=== PATIENT | female | born 2000 | race Caucasian/White ===

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

== ENCOUNTER 2019-09-11 10:22 | Emergency (ER) | payer MEDICAID ==
[~2019-09-11] VITALS: Ht 167.6 cm; Wt 113.8 kg
[~2019-09-11 10:22] MED LIST changes: +INSU100V34 SQ
--- NOTE | 2019-09-11 10:37 | NUR ---
Pt to room from triage.
[2019-09-11] MEDS ORDERED: ACETAMINOPHEN 500 MG TABLET ONE (10:49)
[2019-09-11] MEDS ORDERED: ACETAMINOPHEN 500 MG TABLET PO ONE (11:00)
[2019-09-11 11:29] LABS: MICROSCOPIC NOT IND
[2019-09-11 11:30] LABS: CULTURE INDICATED? NO
--- NOTE | 2019-09-11 11:54 | NUR ---
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
--- NOTE | 2019-09-11 12:34 | NUR ---
Patient given discharge instructions and they have confirmed that they understand the instructions. Patient ambulatory with steady gait. Pt left with d/c paperwork, Rx, work note, and all personal belongings. NADN. No other needs expressed.
[2019-09-11 12:35] VITALS: BP 150/92
== END 2019-09-11 12:37 | disposition home or self-care (01) ==
LOC: ED 12:31
DX: O26.892 Other specified pregnancy related conditions, second trimester (principal); M54.42 Lumbago with sciatica, left side; R10.9 Unspecified abdominal pain; E10.9 Type 1 diabetes mellitus without complications; Z87.891 Personal history of nicotine dependence; Z3A.21 21 weeks gestation of pregnancy
CPT/HCPCS: 81003; 99283

== ENCOUNTER 2019-10-28 03:11 | Outpatient (CLI) | payer MEDICAID ==
[~2019-10-28] VITALS: Ht 167.6 cm; Wt 115.9 kg
[2019-10-28 03:17] VITALS: BP 141/95
[2019-10-28 03:45] LABS: MICROSCOPIC INDICATED
[2019-10-28 03:52] LABS: CREATININE,URINE RANDOM 36.6 mg/dL
[2019-10-28 04:07] LABS: BASOPHILS # (AUTO) 0.04 x10^3/uL (0-0.3); BASOPHILS % (AUTO) 0 % (0-1); EOSINOPHILS # (AUTO) 0.15 x10^3/uL (0-0.8); EOSINOPHILS % (AUTO) 1 % (1-7); LYMPHOCYTES # (AUTO) 2.46 x10^3/uL (1-6.1); LYMPHOCYTES % (AUTO) 18 % (22-44); MD NO; MEAN CORPUSCULAR HEMOGLOBIN 29.3 pg (27.0-34.8); MEAN CORPUSCULAR HGB CONC 33.6 g/dL (32.4-35.8); MEAN CORPUSCULAR VOLUME 87.2 fL (80-100); MEAN PLATELET VOLUME 8.8 fL (7.4-10.4); MONOCYTES % (AUTO) 9 % (2-9); NEUTROPHILS # (AUTO) 9.69 x10^3/uL (1.8-8.0); NEUTROPHILS % (AUTO) 72 % (42-75); PLATELET COUNT 252 x10^3/uL (130-400); RED BLOOD COUNT 4.02 x10^6/uL (3.82-5.3); RED CELL DISTRIBUTION WIDTH 14.7 % (9.6-15.2)
[2019-10-28 04:17] LABS: ALANINE AMINOTRANSFERASE 22 U/L (12-78); ALBUMIN 2.5 g/dL (3.4-5.0); ANION GAP 6 mmol/L (5-15); CALCIUM 9.2 mg/dL (8.5-10.1); CHLORIDE 108 mmol/L (98-107); CREATININE 0.57 mg/dL (0.55-1.02)
[2019-10-28 04:19] LABS: ALKALINE PHOSPHATASE 73 U/L (45-117); BILIRUBIN,TOTAL 0.1 mg/dL (0.2-1.0)
[2019-10-28 04:20] LABS: BILIRUBIN, DIRECT < 0.1 mg/dL (0.1-0.2)
== END 2019-10-28 06:38 | disposition home or self-care (01) ==
LOC: LDOP 03:11 → LDIP 05:00 → LDOP 06:38
PROVIDERS: ATTEND Obstetrics & Gynecology
DX: O16.3 Unspecified maternal hypertension, third trimester (principal); O24.913 Unspecified diabetes mellitus in pregnancy, third trimester; Z3A.28 28 weeks gestation of pregnancy
CPT/HCPCS: 36415; 59025; 80053; 81001; 82248; 82570; 83036; 84156; 84550; 85025; 87086; 99211; G0378; G0463

== ENCOUNTER 2019-12-04 14:46 | Inpatient (IN) | payer MEDICAID ==
[~2019-12-04] VITALS: Ht 167.6 cm; Wt 118.0 kg
[2019-12-04] MEDS ORDERED: [UNRECOGNIZED DRUG - OTHER] SC (15:04)
[2019-12-04 15:05] VITALS: BP 133/83
[2019-12-04 18:13] LABS: BASOPHILS # (AUTO) 0.02 x10^3/uL (0-0.3); BASOPHILS % (AUTO) 0 % (0-1); EOSINOPHILS # (AUTO) 0.13 x10^3/uL (0-0.8); EOSINOPHILS % (AUTO) 1 % (1-7); LYMPHOCYTES # (AUTO) 1.99 x10^3/uL (1-6.1); LYMPHOCYTES % (AUTO) 17 % (22-44); MD NO; MEAN CORPUSCULAR HEMOGLOBIN 28.9 pg (27.0-34.8); MEAN CORPUSCULAR VOLUME 87.4 fL (80-100); MEAN PLATELET VOLUME 9.4 fL (7.4-10.4); MONOCYTES # (AUTO) 0.83 x10^3/uL (0-1.4); MONOCYTES % (AUTO) 7 % (2-9); NEUTROPHILS % (AUTO) 74 % (42-75); PLATELET COUNT 245 x10^3/uL (130-400); RED BLOOD COUNT 4.25 x10^6/uL (3.82-5.3); RED CELL DISTRIBUTION WIDTH 15.6 % (9.6-15.2)
[2019-12-04] MEDS ORDERED: DIPHENHYDRAMINE 25 MG CAPSULE PO PRN (19:30)
[2019-12-04 19:48] VITALS: BP 131/83
[2019-12-04] MEDS ORDERED: ADMELOG MC SCH (20:30)
[2019-12-04] MEDS ORDERED: BASALGAR MC SCH (20:30)
[2019-12-04] MEDS ORDERED: ACETAMINOPHEN 325 MG TABLET ONE (20:54)
[2019-12-04] MEDS ORDERED: INSULIN GLARGINE 100 UNITS/ML, PEN SQ-INSULIN SCH (21:00)
[2019-12-04] MEDS ORDERED: ACETAMINOPHEN 325 MG TABLET PO PRN (21:00)
[2019-12-05] MEDS ORDERED: INSULIN LISPRO 100 UNIT/ML, 3ML VIAL SQ SCH ×2 (08:00)
[2019-12-05] MEDS ORDERED: INSULIN LISPRO 100 UNITS/ML, PEN SQ-INSULIN SCH (09:31)
== END 2019-12-05 12:42 | disposition home or self-care (01) | DRG 832 ==
LOC: LDOP 14:46 → LDIP 17:24
PROVIDERS: ADMIT Obstetrics & Gynecology; ATTEND Obstetrics & Gynecology
DX: O24.013 Pre-existing type 1 diabetes mellitus, in pregnancy, third trimester (principal); O10.913 Unspecified pre-existing hypertension complicating pregnancy, third trimester; O36.8130 Decreased fetal movements, third trimester, not applicable or unspecified; Z3A.33 33 weeks gestation of pregnancy
CPT/HCPCS: 36415; 76819; 82962; 85025; 86850; 86900; G0378; J1815; J1817

== ENCOUNTER 2019-12-18 19:26 | Inpatient (IN) | payer MEDICAID ==
[~2019-12-18] VITALS: Ht 167.6 cm; Wt 118.0 kg
[~2019-12-18 19:26] MED LIST changes: +[UNRECOGNIZED DRUG - OTHER] SC
[2019-12-18 19:53] VITALS: BP 143/79
[2019-12-18 20:16] LABS: MICROSCOPIC INDICATED
[2019-12-18 20:20] LABS: BASOPHILS # (AUTO) 0.03 x10^3/uL (0-0.3); BASOPHILS % (AUTO) 0 % (0-1); EOSINOPHILS # (AUTO) 0.09 x10^3/uL (0-0.8); EOSINOPHILS % (AUTO) 1 % (1-7); LYMPHOCYTES # (AUTO) 1.98 x10^3/uL (1-6.1); LYMPHOCYTES % (AUTO) 18 % (22-44); MD NO; MEAN CORPUSCULAR HEMOGLOBIN 28.6 pg (27.0-34.8); MEAN CORPUSCULAR VOLUME 86.7 fL (80-100); MEAN PLATELET VOLUME 9.8 fL (7.4-10.4); MONOCYTES # (AUTO) 0.73 x10^3/uL (0-1.4); MONOCYTES % (AUTO) 7 % (2-9); NEUTROPHILS # (AUTO) 8.24 x10^3/uL (1.8-8.0); NEUTROPHILS % (AUTO) 74 % (42-75); PLATELET COUNT 242 x10^3/uL (130-400); RED BLOOD COUNT 4.16 x10^6/uL (3.82-5.3); RED CELL DISTRIBUTION WIDTH 15.8 % (9.6-15.2)
[2019-12-18 20:30] LABS: ALANINE AMINOTRANSFERASE 16 U/L (12-78); ALBUMIN 2.3 g/dL (3.4-5.0); ANION GAP 10 mmol/L (5-15); CALCIUM 8.9 mg/dL (8.5-10.1); CHLORIDE 109 mmol/L (98-107)
[2019-12-18 20:32] LABS: ALKALINE PHOSPHATASE 111 U/L (45-117); BILIRUBIN, DIRECT < 0.1 mg/dL (0.1-0.2); BILIRUBIN,TOTAL 0.2 mg/dL (0.2-1.0); TOTAL PROTEIN 6.7 g/dL (6.4-8.2)
[2019-12-18] MEDS ORDERED: MAGNESIUM SULF. PMX 20GM/500ML 500 ML IV ONE (21:43)
[2019-12-18] MEDS ORDERED: NEWBORN KIT ONE (21:43)
[2019-12-18] MEDS ORDERED: MISOPROSTOL 25 MCG TABLET ONE (21:43)
[2019-12-18] MEDS ORDERED: MISOPROSTOL 200 MCG TABLET ONE (21:43)
[2019-12-18] MEDS ORDERED: LIDOCAINE 1%, 20ML ONE (21:43)
[2019-12-18] MEDS ORDERED: MAGNESIUM SULFATE PMX 4GM/100M 100 ML ONE (21:43)
[2019-12-19] MEDS ORDERED: MAGNESIUM SULFATE PMX 4GM/100M 100 ML IVPB ONE
[2019-12-19] MEDS: LACTATED RINGERS 1,000 ML IV PRN ×2 (00:05→13:32)
[2019-12-19] MEDS: MAGNESIUM SULF. PMX 20GM/500ML 500 ML IV SCH ×4 (00:37→20:36)
[2019-12-19] MEDS: MISOPROSTOL 25 MCG TABLET VG PRN ×2 (00:49→04:45)
[2019-12-19] MEDS ORDERED: D5%-LACTATED RINGERS 1,000 ML IV SCH ×2 (01:48→07:27)
[2019-12-19] MEDS ORDERED: OXYTOCIN 30U/ 0.9% NaCL 500ML 500 ML IV PRN (01:48)
[2019-12-19] MEDS ORDERED: OXYTOCIN 30U/ 0.9% NaCL 500ML 500 ML IV ONE (01:48)
[2019-12-19] MEDS ORDERED: LACTATED RINGERS 1,000 ML IV SCH ×2 (01:48→16:44)
[2019-12-19] MEDS ORDERED: FENTANYL PF 100 MCG/2ML IV PRN (02:00)
[2019-12-19] MEDS ORDERED: TERBUTALINE 1 MG/ML, 1ML IVPush PRN (02:00)
[2019-12-19] MEDS ORDERED: METOCLOPRAMIDE 5 MG/ML, 2ML IVPush PRN (02:00)
[2019-12-19] MEDS ORDERED: ONDANSETRON 2MG/ML, 2ML IVPush PRN (02:00)
[2019-12-19] MEDS ORDERED: FENTANYL PF 100 MCG/2ML IVPush PRN (02:00)
[2019-12-19] MEDS ORDERED: TERBUTALINE 1 MG/ML, 1ML SQ PRN (02:00)
[2019-12-19] MEDS ORDERED: SODIUM CITRATE/CITRIC ACID 30 ML UDC PO PRN (02:00)
[2019-12-19] MEDS ORDERED: MISOPROSTOL 25 MCG TABLET ONE (04:40)
[2019-12-19 05:00] VITALS: BP 139/70
[2019-12-19] MEDS ORDERED: MAGNESIUM SULF. PMX 20GM/500ML 500 ML IV ONE ×2 (07:40→20:31)
[2019-12-19] MEDS ORDERED: OXYTOCIN 30U/ 0.9% NaCL 500ML 500 ML ONE (08:28)
[2019-12-19] MEDS ORDERED: ACETAMINOPHEN 325 MG TABLET ONE (10:49)
[2019-12-19] MEDS: INSULIN LISPRO 100 UNITS/ML, PEN SQ-INSULIN SCH ×4 (11:00→21:00)
[2019-12-19] MEDS ORDERED: ACETAMINOPHEN 325 MG TABLET PO PRN (11:00)
[2019-12-19] MEDS ORDERED: FENTANYL/BUPIV./NS/PF 250 ML EPIDCONT SCH ×2 (11:06→14:56)
[2019-12-19] MEDS ORDERED: FENTANYL PF 500 MCG, BUPIVACAINE/PF 0.5%, 30ML 62.5 ML in SODIUM CHLORIDE 0.9% 177.5 ML EPIDCONT SCH ×2 (11:30→16:00)
[2019-12-19] MEDS ORDERED: CLINDAMYCIN PMX 900MG/50ML 50 ML ONE ×2 (13:33→20:30)
[2019-12-19] MEDS: CLINDAMYCIN PMX 900MG/50ML 50 ML IV SCH ×2 (13:35→20:34)
[2019-12-19] MEDS ORDERED: BUPIVACAINE 0.25% ONE (13:47)
[2019-12-19] MEDS ORDERED: EPHEDRINE 50 MG/ML, 1ML ONE (14:47)
[2019-12-19] MEDS ORDERED: NALOXONE 0.4 MG/ML, 1ML IVPush PRN (15:00)
[2019-12-19] MEDS ORDERED: EPHEDRINE 50 MG/ML, 1ML IVPush PRN (15:00)
[2019-12-19] MEDS ORDERED: DIPHENHYDRAMINE 50 MG/ML, 1ML IVPush PRN (15:00)
[2019-12-19] MEDS ORDERED: LACTATED RINGERS 1,000 ML IVBOLUS PRN (15:00)
[2019-12-19] MEDS: REGULAR INSULIN 100 UNITS in SODIUM CHLORIDE 0.9% 99 ML IV PRN (17:23)
[2019-12-19] MEDS: LACTATED RINGERS 1,000 ML IV SCH ×2 (17:31→22:56)
[2019-12-19 19:00] VITALS: BP 101/57
[2019-12-19] MEDS ORDERED: ONDANSETRON 2MG/ML, 2ML ONE (20:05)
[2019-12-19] MEDS: ONDANSETRON 2MG/ML, 2ML IVPush PRN (20:08)
[2019-12-19] MEDS ORDERED: INSULIN GLARGINE 100 UNITS/ML, PEN SQ-INSULIN SCH (21:00)
[2019-12-20] MEDS ORDERED: FENTANYL PF 100 MCG/2ML ONE (00:27)
[2019-12-20] MEDS ORDERED: BUPIVACAINE 0.25% ONE (00:27)
[2019-12-20 00:30] VITALS: BP 138/72
[2019-12-20] MEDS: LACTATED RINGERS 1,000 ML IV SCH (03:47)
[2019-12-20] MEDS ORDERED: CLINDAMYCIN PMX 900MG/50ML 50 ML ONE ×2 (04:08→11:55)
[2019-12-20] MEDS: CLINDAMYCIN PMX 900MG/50ML 50 ML IV SCH ×2 (04:30→12:11)
[2019-12-20 04:31] VITALS: BP 111/54
[2019-12-20] MEDS: INSULIN LISPRO 100 UNITS/ML, PEN SQ-INSULIN SCH (04:43)
[2019-12-20] MEDS ORDERED: MAGNESIUM SULF. PMX 20GM/500ML 500 ML IV ONE ×3 (05:26→23:07)
[2019-12-20] MEDS: MAGNESIUM SULF. PMX 20GM/500ML 500 ML IV SCH ×3 (05:28→23:10)
[2019-12-20] MEDS ORDERED: FENTANYL/BUPIV./NS/PF 250 ML EPIDCONT ONE ×2 (07:19→21:17)
[2019-12-20] MEDS: D5%-0.45% NACL 1,000 ML IV SCH (09:31)
[2019-12-20] MEDS ORDERED: ONDANSETRON 2MG/ML, 2ML ONE ×2 (11:03→23:56)
[2019-12-20] MEDS: ONDANSETRON 2MG/ML, 2ML IVPush PRN (11:05)
[2019-12-20] MEDS ORDERED: SODIUM CITRATE/CITRIC ACID 30 ML UDC ONE (12:14)
[2019-12-20] MEDS ORDERED: METOCLOPRAMIDE 5 MG/ML, 2ML ONE (12:14)
[2019-12-20] MEDS ORDERED: OXYTOCIN 30U/ 0.9% NaCL 500ML 500 ML ONE (13:43)
[2019-12-20] MEDS: REGULAR INSULIN 100 UNITS in SODIUM CHLORIDE 0.9% 99 ML IV PRN (14:24)
[2019-12-20] MEDS ORDERED: LIDOCAINE/MPF 2%-EPI 1:200K, 20 ML ONE (20:26)
[2019-12-20] MEDS ORDERED: AZITHROMYCIN 500 MG in SODIUM CHLORIDE 0.9% 250 ML IV ONE (22:30)
[2019-12-20] MEDS ORDERED: METOCLOPRAMIDE 5 MG/ML, 2ML IV ONE (23:00)
[2019-12-20] MEDS ORDERED: LACTATED RINGERS 1,000 ML IVBOLUS ONE (23:00)
[2019-12-20] MEDS ORDERED: SODIUM CITRATE/CITRIC ACID 30 ML UDC PO ONE (23:00)
[2019-12-20] MEDS ORDERED: morphine SULFATE/PF 0.5 MG/ML, 10ML ONE (23:55)
[2019-12-20] MEDS ORDERED: OXYTOCIN 10 UNITS/ML, 1ML ONE (23:56)
[2019-12-20] MEDS ORDERED: CEFAZOLIN 1,000 MG ONE (23:56)
[2019-12-20] MEDS ORDERED: WATER-INJECTION,STERILE 10 ML IV ONE (23:56)
[2019-12-20] MEDS ORDERED: DEXAMETHASONE 4 MG/ML, 1ML ONE (23:56)
[2019-12-20] MEDS ORDERED: KETOROLAC 30 MG/1 ML ONE (23:56)
[2019-12-21] MEDS ORDERED: OXYTOCIN 10 UNITS/ML, 1ML ONE (00:24)
[2019-12-21] MEDS ORDERED: MIDAZOLAM 1 MG/ML, 2ML ONE (00:39)
[2019-12-21] MEDS ORDERED: OXYcodone 5 MG/5 ML ORAL.SOL UDC PO PRN (02:00)
[2019-12-21] MEDS ORDERED: ONDANSETRON 2MG/ML, 2ML IVPush PRN ×2 (02:00)
[2019-12-21] MEDS ORDERED: NALOXONE 0.4 MG/ML, 1ML IVPush PRN (02:00)
[2019-12-21] MEDS ORDERED: MEPERIDINE/PF 25MG/0.5ML IVPush PRN (02:00)
[2019-12-21] MEDS ORDERED: FENTANYL PF 100 MCG/2ML IV PRN (02:00)
[2019-12-21] MEDS ORDERED: LABETALOL 5MG/ML, 20ML IV PRN (02:00)
[2019-12-21] MEDS ORDERED: KETOROLAC 30 MG/1 ML IVPush PRN (02:00)
[2019-12-21] MEDS ORDERED: PROMETHAZINE 25 MG/ML, 1ML IVPush PRN (02:00)
[2019-12-21] MEDS ORDERED: EPHEDRINE 50 MG/ML, 1ML IVPush PRN (02:00)
[2019-12-21] MEDS ORDERED: DIPHENHYDRAMINE 50 MG/ML, 1ML IVPush PRN (02:00)
[2019-12-21] MEDS ORDERED: OXYcodone/APAP 5/325MG TABLET PO PRN (02:00)
[2019-12-21] MEDS ORDERED: OXYTOCIN 30U/ 0.9% NaCL 500ML 500 ML IV SCH (02:01)
[2019-12-21] MEDS ORDERED: LACTATED RINGERS 1,000 ML IV SCH ×3 (02:01→15:30)
[2019-12-21] MEDS ORDERED: OXYcodone/APAP 5/325MG TABLET ONE ×2 (02:15→07:02)
[2019-12-21] MEDS: OXYcodone/APAP 5/325MG TABLET PO PRN ×2 (02:20→07:03)
[2019-12-21] MEDS ORDERED: BISACODYL 10 MG SUPP PR PRN (02:30)
[2019-12-21] MEDS ORDERED: ONDANSETRON 2MG/ML, 2ML IV PRN (02:30)
[2019-12-21] MEDS ORDERED: OXYcodone IR 5MG TABLET PO PRN (02:30)
[2019-12-21] MEDS ORDERED: MORPHINE SULFATE 4 MG/ML, 1ML IVPush PRN (02:30)
[2019-12-21] MEDS ORDERED: METOCLOPRAMIDE 5 MG/ML, 2ML IV PRN (02:30)
[2019-12-21] MEDS: ACETAMINOPHEN 500 MG TABLET PO SCH ×4 (02:30→20:30)
[2019-12-21] MEDS ORDERED: CALCIUM CARBONATE 500 MG TAB.CHEW PO PRN (02:30)
[2019-12-21] MEDS ORDERED: MISOPROSTOL 200 MCG TABLET PR PRN (02:30)
[2019-12-21] MEDS ORDERED: morphine SULFATE 10 MG/ML, 1ML IV PRN (02:30)
[2019-12-21] MEDS ORDERED: DIPHENHYDRAMINE 50 MG/ML, 1ML ONE (07:11)
[2019-12-21] MEDS ORDERED: DIPHENHYDRAMINE 50 MG/ML, 1ML IVPush ONE (07:30)
[2019-12-21 07:34] VITALS: BP 143/86
[2019-12-21] MEDS: KETOROLAC 30 MG/1 ML IV SCH ×4 (08:30→21:06)
[2019-12-21 08:59] LABS: MEAN CORPUSCULAR HEMOGLOBIN 28.9 pg (27.0-34.8); MEAN CORPUSCULAR HGB CONC 32.7 g/dL (32.4-35.8); MEAN CORPUSCULAR VOLUME 88.3 fL (80-100); MEAN PLATELET VOLUME 9.2 fL (7.4-10.4); PLATELET COUNT 233 x10^3/uL (130-400); RED CELL DISTRIBUTION WIDTH 16.6 % (9.6-15.2)
[2019-12-21] MEDS: PRENATAL VIT/IRON/FA 1 EACH TABLET PO SCH (09:00)
[2019-12-21] MEDS ORDERED: MAGNESIUM SULF. PMX 20GM/500ML 500 ML IV ONE ×2 (09:10→18:59)
[2019-12-21] MEDS: MAGNESIUM SULF. PMX 20GM/500ML 500 ML IV SCH ×2 (09:15→19:01)
[2019-12-21 09:16] LABS: MD YES
[2019-12-21 09:17] LABS: <RBC MORPHOLOGY> NORMAL; BAND#(MANUAL) 1.34 x10^3/uL; BANDS%(MANUAL) 6 % (0-7); BASOS#(MANUAL) 0.22 x10^3/uL (0-0.3); BASOS% (MANUAL) 1 % (0-1); LYMPH#(MANUAL) 0.22 x10^3/uL (1-6.1); LYMPHS% (MANUAL) 1 % (22-44); MONOS#(MANUAL) 0.22 x10^3/uL (0.3-2.7); MONOS% (MANUAL) 1 % (2-9); SEG#(MANUAL) 20.38 x10^3/uL (1.8-8); SEGS% (MANUAL) 91 % (42-75)
[2019-12-21 09:18] LABS: <PLATELET ESTIMATE> ADEQUATE; <PLT MORPHOLOGY> NORMAL PLT MORPH
[2019-12-21] MEDS: INSULIN LISPRO 100 UNITS/ML, PEN SQ-INSULIN SCH (09:33)
[2019-12-21] MEDS ORDERED: morphine SULFATE 10 MG/ML, 1ML ONE (10:16)
[2019-12-21] MEDS: D5%-0.45% NACL 1,000 ML IV SCH (13:41)
[2019-12-21] MEDS ORDERED: REGULAR INSULIN 100 UNITS in SODIUM CHLORIDE 0.9% 99 ML IV PRN (17:30)
[2019-12-21] MEDS ORDERED: INSULIN GLARGINE 100 UNITS/ML, PEN SQ-INSULIN SCH (21:00)
[2019-12-21] MEDS ORDERED: KETOROLAC 30 MG/1 ML ONE (21:03)
[2019-12-22 02:30] VITALS: BP 142/84
[2019-12-22] MEDS ORDERED: IBUPROFEN 600 MG TABLET PO PRN (02:30)
[2019-12-22] MEDS: ACETAMINOPHEN 500 MG TABLET PO SCH ×4 (02:30→21:44)
[2019-12-22] MEDS: INSULIN LISPRO 100 UNITS/ML, PEN SQ-INSULIN SCH ×4 (07:00→19:30)
[2019-12-22 07:06] VITALS: BP 134/78
[2019-12-22] MEDS ORDERED: INSULIN LISPRO 100 UNITS/ML, PEN SQ-INSULIN SCH (07:30)
[2019-12-22] MEDS: DOCUSATE 100 MG CAPSULE PO PRN ×2 (09:32→20:14)
[2019-12-22] MEDS: PRENATAL VIT/IRON/FA 1 EACH TABLET PO SCH (09:32)
[2019-12-22] MEDS: SIMETHICONE 80 MG CHEW TAB PO PRN (09:32)
[2019-12-22 14:23] VITALS: BP 134/86
[2019-12-22] MEDS: ENOXAPARIN 40 MG/0.4 ML SQ SCH (14:27)
[2019-12-22 16:21] VITALS: BP 138/84
[2019-12-22] MEDS: OXYcodone IR 5MG TABLET PO PRN ×2 (16:55→20:14)
[2019-12-22 20:30] VITALS: BP 146/93
[2019-12-22] MEDS: INSULIN GLARGINE 100 UNITS/ML, PEN SQ-INSULIN SCH (21:46)
[2019-12-23] VITALS: BP 136/89
[2019-12-23] MEDS: OXYcodone IR 5MG TABLET PO PRN ×3 (00:11→12:36)
[2019-12-23] MEDS: ACETAMINOPHEN 500 MG TABLET PO SCH ×4 (03:25→21:25)
[2019-12-23 03:37] VITALS: BP 132/86
[2019-12-23 07:15] VITALS: BP 142/82
[2019-12-23] MEDS: INSULIN LISPRO 100 UNITS/ML, PEN SQ-INSULIN SCH ×5 (07:15→21:00)
[2019-12-23] MEDS: PRENATAL VIT/IRON/FA 1 EACH TABLET PO SCH (07:20)
[2019-12-23] MEDS: DOCUSATE 100 MG CAPSULE PO PRN (07:20)
[2019-12-23 12:28] VITALS: BP 144/95
[2019-12-23] MEDS: SIMETHICONE 80 MG CHEW TAB PO PRN (15:27)
[2019-12-23] MEDS: ENOXAPARIN 40 MG/0.4 ML SQ SCH (15:32)
[2019-12-23 16:55] VITALS: BP 148/94
[2019-12-23 20:30] VITALS: BP 143/95
[2019-12-23] MEDS: INSULIN GLARGINE 100 UNITS/ML, PEN SQ-INSULIN SCH (21:25)
[2019-12-24 01:00] VITALS: BP 146/98
[2019-12-24] MEDS: ACETAMINOPHEN 500 MG TABLET PO SCH ×2 (03:41→10:05)
[2019-12-24 05:00] VITALS: BP 157/97
[2019-12-24 06:45] VITALS: BP 134/89
[2019-12-24] MEDS: INSULIN LISPRO 100 UNITS/ML, PEN SQ-INSULIN SCH (07:00)
[2019-12-24 08:50] VITALS: BP 144/99
[2019-12-24] MEDS: PRENATAL VIT/IRON/FA 1 EACH TABLET PO SCH (09:00)
[2019-12-24] MEDS: OXYcodone IR 5MG TABLET PO PRN (09:12)
[2019-12-24] MEDS ORDERED: DIPH,PERTUSS(ACELL),TET VAC/PF NC IM-VACC ONE ×2 (09:57→10:00)
== END 2019-12-24 11:00 | disposition home or self-care (01) | DRG 786 ==
LOC: LDOP 19:26 → LDIP 20:56 → 2NE 12-21 05:27 → 2NW 12-22 02:19
PROVIDERS: ADMIT Obstetrics & Gynecology; ATTEND Obstetrics & Gynecology
PROC: 10D00Z1 Extraction of Products of Conception, Low, Open Approach (ICD-10-PCS; principal; 2019-12-20)
DX: O62.0 Primary inadequate contractions (principal); O24.02 Pre-existing type 1 diabetes mellitus, in childbirth; O14.14 Severe pre-eclampsia complicating childbirth; O99.214 Obesity complicating childbirth; Z37.0 Single live birth; E66.01 Morbid (severe) obesity due to excess calories; E10.9 Type 1 diabetes mellitus without complications; O61.9 Failed induction of labor, unspecified; O99.73 Diseases of the skin and subcutaneous tissue complicating the puerperium; R21 Rash and other nonspecific skin eruption; Z79.4 Long term (current) use of insulin; Z88.8 Allergy status to other drugs, medicaments and biological substances; Z3A.35 35 weeks gestation of pregnancy
CPT/HCPCS: 36415; 80053; 81001; 82248; 82570; 82947; 82962; 83735; 84156; 84550; 85025; 86592; 86850; 86900; 86923; 87081; 87086; 90715; G0378; J0456; J0690; J1100; J1650; J1815; J1885; J2250; J2274; J2405; J3490; J1200; J2270; J2590; J2765; J3475; J7050; J7120

== ENCOUNTER 2020-11-02 12:57 | Emergency (ER) | payer MEDICAID ==
[~2020-11-02] VITALS: Ht 170.2 cm; Wt 127.5 kg
[2020-11-02 13:06] VITALS: BP 135/90
--- NOTE | 2020-11-02 13:47 | NUR ---
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
--- NOTE | 2020-11-02 14:37 | NUR ---
assumed care for discharge only Patient/Caregiver given discharge instructions and they have confirmed that they understand the instructions. Patient ambulatory with steady gait.
== END 2020-11-02 14:40 | disposition home or self-care (01) ==
LOC: ED 14:00
DX: E11.9 Type 2 diabetes mellitus without complications (principal); Z76.0 Encounter for issue of repeat prescription; I10 Essential (primary) hypertension
CPT/HCPCS: 82962; 99281; 99282